=== PATIENT | female | born 1965 | race Caucasian/White ===

== ENCOUNTER 2018-02-19 21:35 | Emergency (ER) | payer MEDICAID, BC ==
[2018-02-19] MEDS: SOD CHLORIDE 0.9% 1,000 ML IV (22:27)
[2018-02-19] MEDS: DIPHENHYDRAMINE 50 MG INJ IV (22:27)
[2018-02-19] MEDS: KETOROLAC 30 MG INJ IV (22:27)
[2018-02-19] MEDS: PROCHLORPERAZINE 10 MG INJ IV (22:49)
== END 2018-02-19 23:35 | disposition home or self-care (01) ==
LOC: FTE 21:35
DX: R51 Headache (principal); I10 Essential (primary) hypertension
CPT/HCPCS: 70450; 82962; 96374; 96375; 99285-25